=== PATIENT | female | born 2000 | race Caucasian/White ===

== ENCOUNTER 2021-11-28 15:41 | Emergency (ER) | payer OTHER | END 2021-11-28 17:30 | disposition home or self-care (01) | LOC: JD.ED 15:41 | DX: S92.352A Displaced fracture of fifth metatarsal bone, left foot, initial encounter for closed fracture (principal); Z86.16 Personal history of COVID-19; X50.1XXA Overexertion from prolonged static or awkward postures, initial encounter; Y93.02 Activity, running | CPT/HCPCS: 73600-26-LT; 73600-LT; 99283 ==